=== PATIENT | male | born 2000 | race Caucasian/White ===

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

== ENCOUNTER 2022-10-24 18:25 | Emergency (ER) | payer OTHER, BC ==
[2022-10-24 19:17] LABS: APPEARANCE,URINE CLEAR (Clear); BILIRUBIN,URINE NEGATIVE (Negative); COLOR,URINE YELLOW (Yellow); GLUCOSE,URINE NEGATIVE (Negative); KETONES,URINE NEGATIVE (Negative); LEUKOCYTE ESTERASE,URINE NEGATIVE (Negative); NITRITE,URINE NEGATIVE (Negative); OCCULT BLOOD,URINE NEGATIVE (Negative); PROTEIN,URINE NEGATIVE (Negative)
[2022-10-24 19:29] LABS: BACTERIA,URINE OCCASIONAL /hpf (FEW); MUCUS,URINE FEW /hpf (FEW); RBC,URINE 0-5 /hpf (0-5); SQUAMOUS EPITHELIAL CELLS,UR NOT SEEN /hpf (0-5); WBC,URINE 0-5 /hpf (0-5)
[2022-10-24 19:59] VITALS: BP 122/78; PULSE 65
== END 2022-10-24 19:40 | disposition home or self-care (01) ==
LOC: JD.ED 18:25
DX: S20.212A Contusion of left front wall of thorax, initial encounter (principal); Z91.030 Bee allergy status; V43.52XA Car driver injured in collision with other type car in traffic accident, initial encounter; Y92.410 Unspecified street and highway as the place of occurrence of the external cause
CPT/HCPCS: 71045; 71045-26; 81001; 99283

== ENCOUNTER 2023-07-19 19:13 | Emergency (ER) | payer BC ==
[2023-07-19 21:04] VITALS: BP 125/85; PULSE 68
== END 2023-07-19 21:04 | disposition home or self-care (01) ==
LOC: JD.ED 19:13
DX: S63.501A Unspecified sprain of right wrist, initial encounter (principal); Z91.030 Bee allergy status; W01.0XXA Fall on same level from slipping, tripping and stumbling without subsequent striking against object, initial encounter
CPT/HCPCS: 73110-26-RT; 73110-RT; 73130-26-RT; 73130-RT; 99282; 99283